=== PATIENT | female | born 1935 | race Caucasian/White ===

== ENCOUNTER 2020-09-06 11:00 | Inpatient (IN) | payer MEDICARE ==
[~2020-09-06] VITALS: Ht 157.5 cm; Wt 106.6 kg
[2020-09-06 11:05] VITALS: BP 205/67
[2020-09-06 11:40] LABS: ABSOLUTE NEUTROPHILS 5.4 thou/uL (1.4-8.2); BASOPHILS 0.5 % (0.0-2.0); EOSINOPHILS 1.1 % (0.0-3.0); HEMATOCRIT 35.8 % (37.0-47.0); HEMOGLOBIN 12.1 gm/dL (12.0-15.0); LYMPHOCYTES 12.6 % (24.0-44.0); MCH 34.2 pg (26.0-34.0); MCHC 33.8 g/dL (28.0-37.0); MCV 101.2 fL (80.0-100.0); MONOCYTES 11.8 % (1.0-8.0); PLATELET COUNT 218 thou/uL (150-400); RBC 3.54 mil/uL (4.20-5.00); RDW 12.8 % (10.5-14.5); WBC 7.4 thou/uL (4.0-11.0)
[2020-09-06 11:44] LABS: CALCIUM 10.6 mg/dL (8.5-10.1); POTASSIUM 3.2 mmol/L (3.5-5.1)
[2020-09-06 11:50] LABS: ALBUMIN 3.1 g/dL (3.4-5.0); TOTAL BILIRUBIN 0.5 mg/dL (0.2-1.0)
[2020-09-06 12:13] LABS: URINE BILIRUBIN NEGATIVE (Negative); URINE BLOOD NEGATIVE (Negative); URINE CLARITY CLEAR; URINE COLOR YELLOW; URINE GLUCOSE-RANDOM* TRACE (Negative); URINE KETONES NEGATIVE (Negative); URINE LEUKOCYTES-REFLEX NEGATIVE (Negative); URINE NITRITE-REFLEX NEGATIVE (Negative); URINE PROTEIN (DIPSTICK) NEGATIVE (Negative); URINE UROBILINOGEN 0.2 E.U./dl (0.2-1.0)
[2020-09-06 14:42] LABS: CHOLESTEROL 140 mg/dL (<200); HDL CHOLESTEROL 52 mg/dL (>40); LDL CHOLESTEROL 63 mg/dL (<100); TC:HDL 2.7 Ratio (Not establshd); TRIGLYCERIDE 125 mg/dL (<150); VLDL 25 mg/dL (<40)
--- NOTE | 2020-09-06 15:25 | EKG ---
[place] [address] [facility] [place] [address] ELECTROCARDIOGRAM REPORT Name: MELODY HUERTAS Room #: 170-7 ADM IN M.R.#: [id number] Admission: 09/06/20 Attend Phys: Ej Sesay MD Discharge: Date of : 37 Report #: [id number] [facility] ED Test Date: 2020-09-06 Test Time: 11:07:37 Pat Name: MELODY HUERTAS Department: Room: 170 Gender: F Distribution Associate: cheyanne : 1935 Requested By: Daniel Merino Order Number: [id number] : Anthony Jane Measurements Intervals [place] Rate: 88 P: 22 NH: 159 QRS: -37 QRSD: 146 T: 8 QT: 393 QTc: 476 Interpretive Statements Sinus rhythm Atrial premature complexes Right bundle branch block No previous ECG available for comparison Electronically Signed On 09-06-2020 15:24:59 FISH INSPECTOR by Anthony Jane [email or web address] <ELECTRONICALLY SIGNED> By: Anthony Jane MD, [facility] 09/06/20 1524 1107 1107 Anthony Jane MD, FACC /EPI
[2020-09-06 15:34] LABS: FOLIC ACID 43.6 ng/mL (8.6-58.9)
[2020-09-06] MEDS ORDERED: ASA81BEC PO (18:03)
--- NOTE | 2020-09-06 20:13 | NUR ---
hydrocodone given for c/o back pain. notified covid swab negative, discussed with patient.
[2020-09-06 20:15] VITALS: BP 143/68
[2020-09-06 21:47] VITALS: BP 143/68
[2020-09-06 22:05] VITALS: BP 152/72
[2020-09-06 22:35] VITALS: BP 156/70
[2020-09-07 04:06] LABS: GLYCOHEMOGLOBIN (HGB A1C) 5.3 % (4.8-5.6)
--- NOTE | 2020-09-07 05:21 | NUR ---
VSS-AFEBRILE. LUNGS CLEAR-ROOM AIR. C/O SEVERE LOWER BACK PAIN ON THE LEFT SIDE. PAIN STARTS IN THE LEFT BUTTOCK, AND RADIATES DOWN LEFT LEG. PAIN IS SHARP, SHOOTING, BURNING PAIN THAT IS NOT WELL RELIEVED WITH IV AND PO PAIN MEDICATIONS, WELL MUSCLE RELAXER. PATIENT REPORTS BEING NON AMBULATORY X 2 WEEKS DUE TO THE PAIN AND WEAKNESS CAUSED BY THIS CONDITION WITH HER BACK. NO REPORTED N/V, ALLEN WAS PLACED IN THE ER, DRAINING ADEQUATE AMOUNTS OF CLOUDY YELLOW URINE TO DEPENDENT DRAINAGE. FALL PRECAUTIONS IN PLACE.
[2020-09-07 05:42] LABS: ABSOLUTE NEUTROPHILS 4.2 thou/uL (1.4-8.2); BASOPHILS 0.2 % (0.0-2.0); EOSINOPHILS 1.6 % (0.0-3.0); HEMATOCRIT 35.4 % (37.0-47.0); HEMOGLOBIN 11.8 gm/dL (12.0-15.0); LYMPHOCYTES 21.6 % (24.0-44.0); MCH 34.1 pg (26.0-34.0); MCHC 33.2 g/dL (28.0-37.0); MCV 102.5 fL (80.0-100.0); MONOCYTES 13.9 % (1.0-8.0); PLATELET COUNT 196 thou/uL (150-400); POLYS 62.7 % (36.0-66.0); RBC 3.45 mil/uL (4.20-5.00); RDW 12.8 % (10.5-14.5); WBC 6.6 thou/uL (4.0-11.0)
[2020-09-07 05:56] LABS: CREATININE 0.8 mg/dL (0.6-1.0); MAGNESIUM 1.8 mg/dL (1.8-2.4); POTASSIUM 3.9 mmol/L (3.5-5.1)
[2020-09-07 07:38] VITALS: BP 141/50
--- NOTE | 2020-09-07 11:10 | 2DMMODE ---
[facility] [place] [address] [address] 2 D/M-MODE ECHOCARDIOGRAM Name: MELODY HUERTAS Room #: 456-P ADM IN M.R.#: [id number] Admission: 09/06/20 Attend Phys: jE Sesay MD Discharge: Date of : 37 Report #: [id number] THIS REPORT FOR: cc: Brandon Cohn MD, Christopher B. MD Lundgren, Craig H. MD [facility] ~ APPROVED REPORT Study performed: 09/07/2020 08:43:43 EXAM: Comprehensive 2D, Doppler, and color-flow Echocardiogram Patient Location: Bedside Room #: 456 Status: routine BSA: 2.05 HR: 77 bpm BP: 156/70 mmHg Rhythm: NSR Other Information Study Quality: Good Indications CVA/TIA Hypertension/HDD Weakness 2D Dimensions RVDd: 41.74 mm IVSd: 12.00 (7-11mm) LVOT Diam: 18.68 (18-24mm) LVDd: 42.53 mm PWd: 10.10 (7-11mm) Ascending Ao: 24.38 (22-36mm) LVDs: 25.25 (25-40mm) Aortic Root: 27.15 mm IVC: 17.00 mm Volumes Left Atrial Volume (Systole) Single Plane 4CH: 45.78 mL Single Plane 2CH: 49.70 mL LA ESV Index: 25.00 mL/m2 Aortic Valve AoV Peak Claude.: 1.48 m/s AO Peak Gr.: 8.78 mmHg LVOT Max P.32 mmHg LVOT Max V: 1.04 m/s [facility] [email or web address] [address] 2 D/M-MODE ECHOCARDIOGRAM Name: MELODY HUERTAS Room #: 456-P [facility] IN [facility].#: [id number] Admission: 09/06/20 Attend Phys: Kinza Alanis Discharge: Date of : 37 Report #: [id number] VADIM Vmax: 1.92 cm2 Mitral Valve E/A Ratio: 0.8 MV Decel. Time: 221.68 ms MV E Max Claude.: 0.96 m/s MV A Claude.: 1.19 m/s MV PHT: 64.29 ms IVRT: 92.27 ms Pulmonary Valve PV Peak Claude.: 0.69 m/s PV Peak Gr.: 1.90 mmHg Pulmonary Vein P Vein S: 0.73 m/s P Vein A: 0.37 m/s P Vein D: 0.63 m/s P Vein A Dur.: 120.0 msec P Vein S/D Ratio: 1.16 Tricuspid Valve TR Peak Claude.: 3.55 m/s TR Peak Gr.: 50.42 mmHg PA Pressure: 60.00 mmHg Left Ventricle The left ventricle is normal size. There is normal LV segmental wall motion. There is normal left ventricular wall thickness. The left ventricular systolic function is normal. The left ventricular ejection fraction is within the normal range. LVEF is 55-60%. Mild diastolic dysfunction Right Ventricle The right ventricle is normal size. The right ventricular systolic function is normal. Atria Left atrium is at the upper limits of normal. No shunting by contrast bubble injection Right atrium is dilated. Aortic Valve The aortic valve is mild-moderatelly calcified. No aortic regurgitation is present. There is no aortic valvular stenosis. Mitral Valve Mild mitral annular calcification Trace mitral regurgitation. No evidence of mitral valve stenosis. [facility] [address] [place] [address] 2 D/M-MODE ECHOCARDIOGRAM Name: MELODY HUERTAS Room #: 456-P ADM IN M.R.#: [id number] Admission: 09/06/20 Attend Phys: Kinza Alanis Discharge: Date of : 37 Report #: [id number] Tricuspid Valve The tricuspid valve is normal in structure. There is mild tricuspid regurgitation. Estimated PAP 55 mmHg. There is moderate pulmonary hypertension. Pulmonic Valve The pulmonary valve is normal in structure. There is no pulmonic valvular regurgitation. Great Vessels The aortic root is normal in size. IVC is normal in size and collapses <50% with inspiration. Pericardium There is no pericardial effusion. <Conclusion> The left ventricular systolic function is normal. There is normal LV segmental wall motion. LVEF is 55-60%. Mild diastolic dysfunction No shunting by contrast bubble injection The aortic valve is mild-moderatelly calcified. No aortic regurgitation or stenosis. Mild mitral annular calcification. Trace mitral regurgitation. There is mild tricuspid regurgitation. Estimated pulmonary artery pressure of 55 mmHg. There is no pericardial effusion. <ELECTRONICALLY SIGNED> By: Sandeep Felix MD, FACC 09/07/20 1109 1109 1109 Sandeep Felix MD, FACC /INF
--- NOTE | 2020-09-07 15:02 | NUR ---
PT ADMITTED RELATED TO INTRACTABLE LOWER BACK PAIN, WEAKNESS. CM REVIEWED CHART AND SPOKE WITH CARE TEAM. CM CALLED AND SPOKE WITH PT OVER THE PHONE THIS DAY. PT APPEARED TO BE A&O X4. CM ROLE INTRODUCED. PT INDICATED SHE LIVES ALONE IN A HOUSE ALONE WITH 3 STEPS TO ENTER THE HOUSE AND 3 TO MAIN LEVEL. PT INDCATED THAT SHE HAD BEEN INDEPENDENT WITH GAIT AND ADLS UP UNTIL RUBEN TIME. PT INDICATED THAT SINCE THEN SHE HADN'T BEEN ABLE TO CARE FOR HERSELF. SHE INDICATED THAT SHE WOULD SCOOT AROUND THE HOUSE ON HER BUTT OR BELLY. PT INDICATED SHE HAD USED A CANE WHEN SHE HAD BEEN ABLETO GET AROUND PREVIOUSLY. PT INDICATED HER PCP IS DR. LINDA CERRATO BUT SHE HADN'T SEEN HIM IN 8-10 YRS SHE HASN'T HAD A NEED. PT INDICATED NO HH OR SKILLED HX. PT'S DTR RESIDES IN [facility] AND IS HERE IN TOWN CURRENTLY. PT INDICATED THAT SHE IS RECEPTIVE TO ANY RECOMMENDATIONS UPON DC. CM TO FOLLOW INDICATED WITH DC PLANNING.
[2020-09-07 15:41] VITALS: BP 155/82
--- NOTE | 2020-09-07 20:01 | NUR ---
Assumed pt care this am, pain is managed with medications, partial relief is noted. Went down for diagnostics procedures this am, MRI ordered by neuro to be done tomorrow. Daughter was at the bedside, FC in place draining yellow urine POC followed, endorsed to the night nurse.
[2020-09-07 20:07] VITALS: BP 148/82
--- NOTE | 2020-09-08 04:09 | NUR ---
VSS-AFEBRILE. LUNGS CLEAR-ROOM AIR. CONTINUES TO C/O SEVERE LOWER BACK PAIN THAT RADIATES DOWN LEFT LEG. PAIN IS PARTIALL RELIEVED WITH PO AND IV PAIN MEDICATIONS, WELL SCHEDULED MUSCLE RELAXERS. ALLEN DRAINING ADEQUATE AMOUNTS OF DARK YELLOW URINE TO DEPENDENT DRAINAGE BAG. FALL PRECAUTIONS IN PLACE.
[2020-09-08 07:10] VITALS: BP 130/54
--- NOTE | 2020-09-08 13:27 | HC ---
[facility] [place] [address] CONSULTATION Name: MELODY HUERTAS Room #: 456-P ADM IN M.R.#: [id number] Admission: 09/06/20 Attend Phys: Ej Sesay MD Discharge: Date of : 36 Report #: [id number] THIS REPORT FOR: cc: Brandon Cohn MD, Christopher B. MD Khosla, Parveen K. MD ~ DATE OF SERVICE: 09/07/2020 HISTORY OF PRESENT ILLNESS: This is an 85-year-old female patient who was evaluated by me for pretty unusual history. I talked to the patient's daughter. I discussed the patient with admitting nurse practitioner and I talked to Dr. Sesay, who is going to follow up on this patient. This patient lives by herself. Her daughter lives in [place]. The daughter indicates and the patient confirmed that she started losing strength in the lower extremities around Lyndsey time. She progressively became worse. She never called her daughter because she did not want to bother anybody. She was not able to go to the restroom looks like. She got a bucket to go and pass the urine in that. Today, when I see her, she is basically paralyzed in the lower extremities. She thinks she does not know whether she even has a control of her bladder or not. She has not been to a doctor for a long time and she is completely exhausted with all the testing they are doing. Her arms are preserved and she had developed a rash in the lower extremities and she thought she was allergic to something. I asked her whether it looks like a shingles rash, she said no, but the daughter said it looked like shingle rash to her before she started healing this rash. REVIEW OF SYSTEMS: Difficult because this patient has not seen a doctor for several years and she came here in above-described circumstances. When she came in, she was very hypertensive. PAST MEDICAL HISTORY: Negative for any stroke. FAMILY HISTORY: Noncontributory. SOCIAL HISTORY: She does not drink alcohol according to her. PHYSICAL EXAMINATION: The patient is alert and responsive. She is oriented. She is competent to make her decision. Cranial nerve examinations appear unremarkable. She does appear to have a reasonably good strength in upper extremities. Left side is weaker than the right side, but only mildly so. She says sensation feels different on the left side as compared to the right side, but she can feel the pinprick. In the lower extremities, she has problem. She still has dorsiflexion and plantarflexion of the feet. Strength is about 3/5 there, but she does not move her hip or the knee muscles much at all. She did reasonably well with the position sense. She had no vibration sense in lower [facility] [address] [place] [address] CONSULTATION Name: MELODY HUERTAS Room #: 456-P [facility] IN M.R.#: [id number] Admission: 09/06/20 Attend Phys: Ej Sesay MD Discharge: Date of : 37 Report #: [id number]. She does have vibration sense in the upper extremities. She has no pinprick and in the extremities, but I can determine what level it is. Cardiorespiratory examination appeared unremarkable. Her pulses in the lower extremities are palpable. She had a reasonable workup in the Emergency Room. Abdominal and pelvic CT looks unremarkable. 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 MRI of the brain shows age-related finding, but nothing which can explain the patient's symptoms. IMPRESSION AND PLAN: Paraplegia and maybe some neural deficit in the upper extremities of unknown etiology. This patient needs further workup and needs further workup fast. I strongly recommended that we do a stat MRI of the spine, starting with lumbar and thoracic spine and, if that is negative, do the cervical spine. The patient adamantly refused that and said she will not have any further testing done today. I discussed with her that these are time-sensitive diagnoses and whatever she lose, she usually does not get back and we need to do those testing as soon as possible. She is again adamant that she will not do any further testing today. I talked that aspect to Dr. Sesay. I do not know what I can do in these circumstances because she is competent to make her decision and she understands why I am recommending that these things need to be done stat. So, I ordered the MRI and told them to do it as soon as the patient let us do that and then she may need an MRI of the cervical spine. This patient also needs a Dermatology consult to see whether they think the patient had any herpes zoster. This patient will probably need a spinal tap also depending upon the MRI. I will check a vitamin B12 level. This is a very unusual circumstance, in which she came to the hospital and now she would not go for those testing. I spent more than 50 minutes of time taking care of this patient today and majority was spent counseling and coordinating. Thank you very much for this referral. <ELECTRONICALLY SIGNED> By: Kristopher Crane MD 09/08/20 1327 1402 1428 Kristopher Crane MD /nt
[2020-09-08 15:33] VITALS: BP 153/61
--- NOTE | 2020-09-08 16:22 | NUR ---
PT HAD MRI THIS DAY. MARIO CONSULTED TO SEE PT WELL. CM MET WITH PT AT BEDSIDE THIS DAY AND PROVIDED [employer] SNF LIST FOR HER TO REVIEW. CM TO FOLLOW INDICATED WITH DC PLANNING.
--- NOTE | 2020-09-08 18:43 | NUR ---
Assumed pt care at 7am.Pt in and out of bed to mri dept. and returned after 2hours.Assessment completed.vss.Pt c/o back and rt leg pain.Fentanyl ivp and Philo given with partial relief.Received call from Dr Levi,requested to talk to Dr Sesay before coming to see pt.Later this evening,order noted from Dr Sesay.Mag citrate and lactulose given.Will continue to monitor.
[2020-09-08 20:34] VITALS: BP 173/81
--- NOTE | 2020-09-09 02:49 | NUR ---
PT CARE ASSUMED WITH PT IN BED WATCHING TV.PT IS A/OX4.PT HAS A ALLEN CATHETER IN PLACE .PT C/O PAIN AND PAIN MANAGED WITH HYDROCODONE AND FENTANYL.PT HAD BM AND HAD MAG CITRATE YESTERDAY.PT USES A BEDPAN.IV ACCESS ON LT AC SL.WILL CONTINUE TO MONITOR
[2020-09-09 08:00] VITALS: BP 154/85
[2020-09-09 16:07] VITALS: BP 120/57
--- NOTE | 2020-09-09 17:11 | NUR ---
CARE TEAM ASKED THIS AM THAT CM INITIATE TRANSFER TO [facility] FOR [facility]O [facility]. CM MET WITH PT AT BEDSIDE AND PT INDICATED THAT SHE WASN'T RECEPTIVE TO TRANSFER TO [facility]. THAT THEY HAD INDICATED THAT INTERVENTION COULD MAYBE BE PROVIDED HER SATURDAY AND THAT SHE WANTED TO STAY HERE. CM NOTIFED HOSPITALIST SHE VISITED WITH PT AND EXPLAINED THE REASON THE TRANSFER WAS RECOMMENDED AND AGAIN PT INIDCATED SHE UNDERSTOOD RISKS AND BENEFITS BUT STILL WISHED TO REMAIN HERE. ANTICPATED THAT PT WILL BE HERE OVER WEEKEND WITH POSSIBLE NEURO SURGICAL INTERVENTION MIDDLE OF NEXT WEEK.
--- NOTE | 2020-09-09 18:09 | NUR ---
Assumed pt care this am, VS stable on bed rest. Pain was not noted since pt did not move or get up from the bed, pt is to have a t11-t12 laminectomy. Pt verbalized she does not want to move to [facility] for the procedure and would rather wait and have it done here. Pt refuses to move due to this. FC in place draiing light yellow urine. Had several bowel movements today thus the refusal of some medications. Daughter at the bed side for most of the day. POC followed with no signs or verbalizations of distress noted. endorsed to the night nurse
[2020-09-09 20:00] VITALS: BP 117/78
--- NOTE | 2020-09-10 04:37 | NUR ---
ASSUMED CARE OF PT AT 1900HRS. PT AOX4 AND LETS NEEDS BE KNOWN. FALL PRECAUTION IN PLACE. PT REPORTED SOME PAIN AND WAS TREATED WITH PRN PAIN MEDICATION. PT DENIED NAUSEA AND SOA. PT PLACED NPO AT DE PER ORDER, HOWEVER, SURGERY IS SCHEDULED FOR 09/14. PT WAS ABLE TO GET COMFORTABLE AND SLEEP PART OF THE SHIFT. VSS AND NO S/S OF ACUTE DISTRESS. WILL CONTINUE TO MONITOR.
[2020-09-10 07:59] VITALS: BP 183/103
--- NOTE | 2020-09-10 13:40 | NUR ---
Assumed pt care at 7am.Pt in bed resting.Assessment completed.vss.But elevated bp noted this am.Both iv and po meds given to keep bp under control.Dr Sesay notified.Order noted.Complete bath and bed change done.Pt encouraged to call for needs.Pt looking towards having back surgery on next saturday.Will continue to [facility].
[2020-09-10 15:35] VITALS: BP 163/75
[2020-09-10 19:28] VITALS: BP 148/71
--- NOTE | 2020-09-11 04:07 | NUR ---
Pt. rested quietly during the night when checked on during frequent rounds. She offers no c/o pain. Bed alarm is on.
[2020-09-11 08:07] VITALS: BP 192/76
[2020-09-11 15:31] VITALS: BP 159/81
--- NOTE | 2020-09-11 19:21 | NUR ---
Assumed pt care at 7am.Pt in bed at alltimes resting and watching television. Assessment completed.vss.Repositioned q2h for comfort.Dr Sesay and Dillon Pa here,order noted.Both iv and po pain med given as requested by pt for back pain today.Drt here at lunch time,updates given.Fall bundle in place.Will continue to monitor.
[2020-09-11 20:03] VITALS: BP 161/63
--- NOTE | 2020-09-12 03:02 | NUR ---
PT CARE ASSUMED WITH PT IN BED WATCHING TV.PT IS A/OX4.PT IS ON BEDREST AND C/O PAIN MANAGED WITH FENTANYL AND HYDROCODONE WITH COMPLETE PAIN RELIEF.PT HAS A ALLEN CATHETER AND USES A BEDPAN.PT IS TO HAVE LAMINECTOMY ON THE 09/13/2020.WILL CONTINUE TO MONITOR POC
--- NOTE | 2020-09-12 12:30 | NUR ---
PT CONTINUES TO RESURE EMERGANT TRANSFER TO [facility] FOR NEURO SURGERY RELATED TO CORD COMPRESSION. PHYSICIAN HAS CONTINUED TO EXPLAIN RISKS OF DELAYING INTERVENTION AND PT EXPRESSES UNDERSTANDING AND BIRDIE CONTINUED DESIRE TO REMAIN HERE AT [facility] FOR SURGICAL INTERVENTION WITH DR. QUICK SATURDAY. CM TO FOLLOW INDICATED WITH DC PLANNING.
--- NOTE | 2020-09-12 18:30 | NUR ---
PT ASSESSED AT START OF SHIFT. BACK PAIN W/ SCIATICA MILD W/O REQUEST FOR PAIN PRN MEDS. IV STEROID AND MUSCLE RELAXANT SCHEDULED. PT ASSISTED TURNING IN BED. NOT GETTING UP -ALLEN IN PLACE. NO BM TODAY. LAXATIVES GIVEN. PLAN FOR BACK SURGERY ON SATURDAY.
[2020-09-12 19:50] VITALS: BP 169/78
--- NOTE | 2020-09-13 02:50 | NUR ---
PT CARE ASSUMED WITH PT IN BED.PT IS A/O X4.PT IS ON BEDREST.PT HAS HYDROCODONE FOR PAIN MANAGEMENT.PT HAS A ALLEN CATHETER IN PLACE.WILL CONTINUE TO MONITOR POC
[2020-09-13 08:14] VITALS: BP 129/70
--- NOTE | 2020-09-13 14:19 | NUR ---
Nutrition: pt admitted with intractable back pain, weakness, MRI showed cord compression T11-12. Seen for LOS. Neurosurgery following and plan for surgical intervention tomorrow as pt is refusing emergent [facility] transfer. Intake is good, 75-100% of meals on regular diet. No significant weight changes. BMI 43, extreme class 3 obesity. Pt voices no questions for RD. Low nutrition risk.
[2020-09-13 16:09] VITALS: BP 123/64
--- NOTE | 2020-09-13 19:30 | NUR ---
Assumed pt care this am, VS stable. Minimal pain noted, refused pain meds. Minimal movement done d/t spinal injury, for olaminectomy tomrrow at 10 am. NPO midnight tonight, pt aware. POC followed with no signs or verbalizations of distress noted. Endorsed to the night nurse.
[2020-09-14] VITALS (8 sets, daily range): BP systolic 127–158; BP diastolic 73–113
--- NOTE | 2020-09-14 03:48 | NUR ---
VSS-AFEBRILE. C/O LOWER BACK PAIN OVERNIGHT, PARTIAL RELIEF NOTED WITH IV PAIN MEDICATION. KEPT NPO PER ORDERS FOR SCHEDULED SURGERY THIS MORNING. ALL SENSATION WITH UPPER AND LOWER EXTRMEITIES, MOVES ALL LIMBS. FALL PRECAUTIONS IN PLACE.
--- NOTE | 2020-09-14 15:48 | NUR ---
PT UNDERWENT SURGICAL INTERVENTION THIS DAY. PT HAD LUMBAR LAMINECTOMY. PT WILL NEED SNF PLACEMENT. CM HAD PROVIDED PT TWO COPIES OF SNF LIST TO REVIEW PREVIOUSLY. CM TO FOLLOW UP WITH HER TO SEE WHERE SHE WANTS REFERRALS SENT. CM TO FOLLOW INDIATED WITH DC PLANNING.
--- NOTE | 2020-09-14 18:30 | NUR ---
PATIENT A&OX4, VSS, DENIES PAIN. PATIENT LEFT FLOOR APPROX 0900 AND CAME BACK APPROX 1430. PATIENT HAS BEEN SLEEPING SINCE, POST OP VITALS TAKEN. NO SIGNS OF DISTRESS. ISLAND DRESSING ON BACK, C/D/I. ASSESSMENT COMPLETED, WILL CONTINUE TO MONITOR.
--- NOTE | 2020-09-15 03:46 | NUR ---
ASSUMED CARE OF PT AT SHIFT CHANGE. PT AOX4 AND LETS NEEDS BE KNOWN. FALL PRECAUTION IN PLACE. PT IS POST OP DAY 0. PT REPORTS SOME PAIN BUT IS COMFORTABLE. SURGICAL DRESSING IS C/D/I. IV ABX TREATMENT COMPLETED. 3L O2 POST OP, NOW AT 2L. WILL CONTINUE TO WEAN OFF O2. ALLEN IN PLACE AN PATIENT. PT WAS ABLE TO GET COMFORTABLE AND SLEEP PART OF THE SHIFT. VSS AND NO S/S OF ACUTE DISTRESS. WILL CONTINUE TO MONITOR FOR CHANGES.
[2020-09-15 04:29] VITALS: BP 95/44
[2020-09-15 07:40] VITALS: BP 111/45
[2020-09-15 15:24] VITALS: BP 112/38
--- NOTE | 2020-09-15 16:34 | NUR ---
FAXED REFERRAL TO [facility] SPOKE WITH MEGHNA IN ADM SHE RECEIVED REFERRAL AND WILL REVIEW. DP TO FOLLOW.
--- NOTE | 2020-09-15 18:31 | NUR ---
PT A&OX4, PAIN IN BACK. PATIENT WEANED OFF OXYGEN AND STABLE SATS. PATIENT SLEPT MOST OF DAY. PT IN TO SEE PATIENT. PATIENTS BLOOD PRESSURE RAN SOFT, 112/38 AT 1524, DOCTOR NOTIFIED. NEW ORDERS PLACED BY DOCTOR. NO SIGNS OF DISTRESS. AQUACEL DRESSING ON PATIENTS BACK C/D/I. WILL CONTINUE TO MONITOR.
[2020-09-15 19:30] VITALS: BP 111/50
[2020-09-16] VITALS (8 sets, daily range): BP systolic 102–196; BP diastolic 49–85
--- NOTE | 2020-09-16 04:40 | NUR ---
ASSUMED CARE OF PT AT 1900HRS. PT WAS DROWSY BUT ORIENTED X4. FALL PRECAUTION IN PLACE. PT DENIED PAIN, NAUSEA OR SOA. ALLEN IN PLACE AND PATIENT. ORDER NEEDED TO DC ALLEN IT IS POST OP DAY 2. NO PAIN MEDS GIVEN THIS SHIFT. PT DENIED NAUSEA OR SOA. ASSESSMENT CHARTED. PT WAS ABLE TO GET COMFORTABLE AND SLEEP PART OF THE SHIFT. BP AND MUSCLE RELAXER HELD THIS AM. PT SLEPT MOST OF THE SHIFT. SURGICAL SITE IS C/D/I. WILL CONTINUE TO MONITOR FOR CHANGES.
--- NOTE | 2020-09-16 13:43 | NUR ---
Received awake on bed. Due medications given as prescribed, able to swallow meds w/o difficulty. On room air. Vital signs stable, with BP elevation noted- PRN hydralazine given as prescribed. On MS, not on telemetry; no complains and signs of chest pain, crushing sensation and heaviness. On regular diet, tolerating well; no nausea, no vomiting and no abdominal pain noted. With moreland in place, draining well; output measured and recorded accordingly. With surgical dressing at her back, POD 2; dressing C/D/I. With SL at R hand- intact and flushing well; on IV steroids. On blood sugar monitoring, taken and recorded accordingly. Falls bundle in place. Pt seen and examined by Dr Carranza's PA- to encourage pt to participate with therapies. Complained of pain, due PRN pain meds given as prescribed. BP rechecked post hydralazine- 138/55; Dr Sesay informed re: BP elevation this AM- possible discharge to rehab- CM aware; covid swab done and sent to lab. Visited by relative today, at bedside. Pt seen and examined by PT & OT- able to sit out on the chair. To continue monitoring patient.
--- NOTE | 2020-09-16 13:56 | NUR ---
CARE TEAM INDICATED THAT LONG PT BP IS STABLE AND THAT SHE IS DOING OK WIHT PT SHE WILL BE MEDICALLY STABLE TO DC TO [facility] TOMORROW Saturday09/17/20. CHART COPY ORDERED. CONTACT JOHNATHAN AT TO FACILITATE DC TRANSPORT FAX ORDERS TO . CALL REPORT TO .
--- NOTE | 2020-09-17 04:04 | NUR ---
ASSUMED CARE OF PT AT 1900HRS. PT IS DROWSY BUT ORIENTED X4. FALL PRECAUTION IN PLACE. PT IS POST OP DAY 3. DRESSING IS C/D/I. PT REPORTED SOME PAIN BUT WAS COMFORTABLE. ALLEN IN PLACE AND PATIENT. CONSIDER ALLEN DC. PT DENIED NAUSEA OR SOA. PT SLEPT MOST OF THE SHIFT. VSS AND NO S/S OF ACUTE DISTRESS. WILL CONTINUE TO MONITOR.
[2020-09-17 06:26] VITALS: BP 107/62
[2020-09-17 07:28] VITALS: BP 91/41
--- NOTE | 2020-09-17 12:47 | NUR ---
ASSUMED PT CARE THIS AM. PT HAS NO COMPLAINTS OF PAIN. ALLEN IN PLACE. ON ROOM AIR. IV PATENT. FALL PRECAUTIONS IN PLACE. CALLS APPROPRIATELY WHEN NEEDED.
[2020-09-17 15:54] VITALS: BP 148/69
[2020-09-17 20:41] VITALS: BP 140/59
--- NOTE | 2020-09-18 02:45 | NUR ---
ASSUMED CARE AT 1900. PT IS A/O X4 AND IS UP WITH ASSISTANCE. DENIES C/O PAIN OR DISCOMFORT. REFUSES TO BE REPOSITIONED FREQUENTLY BUT WILL CALL OUT APPROPRIATELY WHEN WANTING TO TURN. VSS. AFEBRILE. ROOM AIR. ALLEN IN PLACE AND DRAINING YELLOW URINE. NO BM THIS SHIFT. FALL PRECAUTIONS IMPLEMENTED, CALL LIGHT IS WITHIN REACH. PT IS PROGRESSING TOWARDS PLAN OF CARE GOALS. WILL CONTINUE TO MONITOR.
[2020-09-18 07:16] VITALS: BP 141/73
[2020-09-18] MEDS ORDERED: LISINOPRIL10 MG PO (10:08)
[2020-09-18] MEDS ORDERED: GABAPENTIN 100100 MG PO (10:09)
[2020-09-18] MEDS ORDERED: HYDROCODON-ACE1 EAC7 PO (10:09)
[2020-09-18] MEDS ORDERED: LACTULOSE20 GM/30 M PO (10:10)
[2020-09-18] MEDS ORDERED: PROTONIX 20 MG20 M1 PO (10:10)
--- NOTE | 2020-09-18 11:44 | NUR ---
ASSUMED PT CARE THIS AM. PT HAS NO COMPLAINTS OF PAIN. A&OX4, VSS. MEDS TAKEN WITHOUT COMPLAINT THIS AM. PT TURNS WELL IN BED. IV PATENT, MEDS INFUSED WITHOUT COMPLAINT. HYDRATION ENCOURAGED. TOLERATES DIET WELL. ON ROOM AIR. FALL PRECAUTIONS IN PLACE, CALLS APPROPRIATELY WHEN NEEDED.
== END 2020-09-18 14:04 | DRG 519 ==
LOC: ER 11:00 → EROBS 14:18 → 4W 14:18
PROVIDERS: Emergency Medicine; Nurse Practitioner; ADMIT Hospitalist; ATTEND Hospitalist
DX: M48.04 Spinal stenosis, thoracic region (principal); E44.1 Mild protein-calorie malnutrition; Z68.41 Body mass index [BMI] 40.0-44.9, adult; G82.20 Paraplegia, unspecified; M47.16 Other spondylosis with myelopathy, lumbar region; M51.14 Intervertebral disc disorders with radiculopathy, thoracic region; M43.17 Spondylolisthesis, lumbosacral region; M48.061 Spinal stenosis, lumbar region without neurogenic claudication; E87.6 Hypokalemia; M48.07 Spinal stenosis, lumbosacral region; K59.00 Constipation, unspecified; M41.9 Scoliosis, unspecified; M51.27 Other intervertebral disc displacement, lumbosacral region; I16.0 Hypertensive urgency; M81.0 Age-related osteoporosis without current pathological fracture; Z20.822 Contact with and (suspected) exposure to COVID-19; Z88.5 Allergy status to narcotic agent; Z90.49 Acquired absence of other specified parts of digestive tract; Z87.891 Personal history of nicotine dependence
CPT/HCPCS: 10045; 10047; 50010; 50101; 50402; 51751; 56455; 56527; 56528; 56532; 57103; 62110; 62900; 70005

== ENCOUNTER 2020-09-20 15:15 | Emergency (ER) | payer MEDICARE ==
[~2020-09-20] VITALS: Ht 162.6 cm; Wt 99.8 kg
[~2020-09-20 15:15] MED LIST: ASA81BEC PO; GABAPENTIN 100100 MG PO; HYDROCODON-ACE1 EAC7 PO; LACTULOSE20 GM/30 M PO; LISINOPRIL10 MG PO; PROTONIX 20 MG20 M1 PO
[2020-09-20 15:18] VITALS: BP 102/69
== END 2020-09-20 15:48 ==
LOC: ER 15:15
DX: I46.9 Cardiac arrest, cause unspecified (principal); Z79.82 Long term (current) use of aspirin; Z79.899 Other long term (current) drug therapy; Z88.5 Allergy status to narcotic agent